=== PATIENT | female | born 1960 | race Caucasian/White ===

== ENCOUNTER 2018-06-23 21:55 | Observation (INO) ==
[2018-06-24] MEDS ORDERED: HYDROmorphone 2 MG/1 ML VIAL IV STA (01:56)
[2018-06-24] MEDS ORDERED: SODIUM CHLORIDE 0.9% 1,000 ML IV STA (01:56)
[2018-06-24] MEDS ORDERED: ONDANSETRON 4 MG/2 ML VIAL IV STA (01:56)
[2018-06-24] MEDS ORDERED: ONDANSETRON 4 MG/2 ML VIAL IV PRN (01:57)
[2018-06-24] MEDS ORDERED: DEXTROSE 5% LACTATED RINGERS 1,000 ML IV SCH (02:00)
[2018-06-24] MEDS: KETOROLAC 30 MG/1 ML VIAL IV PRN ×3 (03:46→22:53)
[2018-06-24] MEDS: SODIUM CHLORIDE 0.9% 1,000 ML IV SCH ×4 (03:58→22:52)
[2018-06-24] MEDS: ONDANSETRON 4 MG/2 ML VIAL IV PRN ×3 (05:50→22:52)
[2018-06-24 06:16] LABS: Basophils % 0.5 % (0.0-0.8); Eosinophils % 0.3 % (0.00-10.9); Hematocrit 37.9 VOL% (35.7-47.0); Hemoglobin 13.2 GM/DL (12.0-16.0); Immature Granulocytes % 0.3 %; Immature Granulocytes Absolute 0.02 #; Lymphocytes # 1.6 10*3/uL (1.4-4.0); Lymphocytes % 20.7 % (21.3-54.2); Mean Corpuscular HGB Conc 34.8 GM/DL (32-36); Mean Corpuscular Hemoglobin 29 PG (27-34); Mean Corpuscular Volume 83.7 FL (87-102); Mean Platelet Volume 11.1 FL (9.6-12.0); Monocytes # 0.7 10*3/uL (0.11-0.8); Monocytes % 9.2 % (1.7-12.7); Neutrophils # 5.3 10*3/uL (1.4-7.4); Platelet Count 186 T/CUMM (130-400); Red Blood Count 4.53 MC/CUMM (3.8-5.5); White Blood Count 7.7 T/CUMM (4-12)
[2018-06-24 06:34] LABS: Bilirubin,Total 0.7 MG/DL (0.2-1.0); Calcium 8.5 MG/DL (8.5-10.1); Osmolality,Calculated 277.4 MOS/KG (273-304); Potassium 3.4 MMOL/L (3.5-5.1); Total Protein 6.1 G/DL (6.4-8.3)
[2018-06-24] MEDS ORDERED: cefTRIAXone 1,000 MG in SYRINGE 1 EACH IV ONE (06:54)
[2018-06-24] MEDS ORDERED: PROPOFOL 200 MG/20 ML VIAL IV ONE (10:00)
[2018-06-24] MEDS ORDERED: SEVOFLURANE 1 UNIT/15 MINUTE INH ONE (10:00)
[2018-06-24] MEDS ORDERED: fentaNYL 100 MCG/2 ML VIAL ONE (10:00)
[2018-06-24] MEDS ORDERED: MIDAZOLAM 2 MG/2 ML VIAL ONE (10:00)
[2018-06-24] MEDS ORDERED: SUCCINYLCHOLINE 200 MG/10 ML VIAL ONE (10:00)
[2018-06-24] MEDS ORDERED: ONDANSETRON 4 MG/2 ML VIAL ONE (10:00)
[2018-06-24] MEDS: PANTOPRAZOLE 40 MG TABLET PO SCH (13:09)
[2018-06-25 00:05] LABS: Apearance,Urine CLEAR (Clear); Bilirubin,Urine Negative (Negative); Blood, Urine Moderate mg/dL (Negative); Glucose,Urine (UA) Negative (Negative); Ketones,Urine 5 mg/dL (Negative); Nitrite,Urine Negative (Negative); Protein,Urine Negative; RBC,Urine 27 /HPF (0-4); Squamous Epithelial Cell,Urine Occasional /HPF (0-10); Urine Color Straw (Yellow); Urine Specific Gravity 1.006 (1.001-1.035); Urine Urobilinogen < 2.0 EU/DL (0.2-1.0); WBC,Urine 4 /HPF (0-6)
[2018-06-25] MEDS: ONDANSETRON 4 MG/2 ML VIAL IV PRN ×2 (03:22→09:13)
[2018-06-25] MEDS: KETOROLAC 30 MG/1 ML VIAL IV PRN ×2 (09:13→11:43)
[2018-06-25] MEDS: SODIUM CHLORIDE 0.9% 1,000 ML IV SCH ×2 (09:14→13:07)
[2018-06-25] MEDS: PANTOPRAZOLE 40 MG TABLET PO SCH (11:30)
[2018-06-25 13:40] VITALS: BP 154/91
[2018-06-25] MEDS ORDERED: POTASSIUM CHLORIDE 20 MEQ TABLET PO ONE (14:57)
== END 2018-06-25 16:04 | disposition home or self-care (01) ==
LOC: N.EDINP 21:55 → N.ED 21:55 → N.5E 06-24 02:40
PROVIDERS: ADMIT Surgery; ATTEND Surgery

== ENCOUNTER 2020-09-26 10:34 | Observation (INO) ==
[2020-09-26 10:51] LABS: Basophils # 0.1 10*3/uL (0.0-0.2); Basophils % 0.9 % (0.0-0.8); Eosinophils # 0.1 10*3/uL (0.0-0.87); Eosinophils % 1.1 % (0.00-10.9); Hematocrit 38.8 VOL% (35.7-47.0); Hemoglobin 13.2 GM/DL (12.0-16.0); Immature Granulocytes % 0.3 %; Immature Granulocytes Absolute 0.02 #; Lymphocytes # 1.7 10*3/uL (1.4-4.0); Lymphocytes % 24.5 % (21.3-54.2); Mean Corpuscular Volume 88.2 FL (87-102); Mean Platelet Volume 10.9 FL (9.6-12.0); Monocytes % 4.6 % (1.7-12.7); Neutrophils % 68.6 % (38.7-73.9); Platelet Count 186 T/CUMM (130-400); Red Cell Distribution Width 12.4 % (9.3-17.3)
[2020-09-26 11:02] LABS: PT Patient Result 10.5 SECS (9.8-11.9); Partial Thromboplastin Time 24.5 SECS (23.9-33.8)
[2020-09-26 11:21] LABS: Alanine Aminotransferase < 9 U/L (13-56); Albumin 3.7 G/DL (3.4-5.0); Alkaline Phosphatase 89 U/L (45-117); Aspartate Amino Transferase 15 U/L (0-37); Blood Urea Nitrogen 6 MG/DL (7-18); Calcium 8.9 MG/DL (8.5-10.1); Carbon Dioxide 27 MMOL/L (21-32); Estimated Glom Filtration Rate 100 ML/MIN; Glucose 168 MG/DL (74-106); Osmolality,Calculated 284.1 MOS/KG (273-304); Potassium 3.2 MMOL/L (3.5-5.1); Sodium 142 MMOL/L (136-145); Total Protein 6.6 G/DL (6.4-8.3)
[2020-09-26] MEDS ORDERED: ENOXAPARIN 100 MG/ML SYRINGE SUBCUT STA (11:32)
[2020-09-26] MEDS ORDERED: ASPIRIN CHEW 81 MG TABLET PO STA (11:32)
[2020-09-26] MEDS ORDERED: METOPROLOL TARTRATE 5 MG/5 ML VIAL IV STA (11:32)
[2020-09-26] MEDS ORDERED: POTASSIUM CHLORIDE 20 MEQ TABLET PO STA (12:12)
[2020-09-26] MEDS ORDERED: NITROGLYCERIN 2% OINT 1 INCH/GM PACK TOP ONE (12:25)
[2020-09-26] MEDS ORDERED: MAGNESIUM SULF RIDER 2 GM in PREMIX 1 EACH IV PRN (12:30)
[2020-09-26] MEDS ORDERED: ALUM/MAG/SIMETH/LIDO VISC 1:1 30 ML BOTTLE PO PRN (12:30)
[2020-09-26] MEDS ORDERED: hydrALAZINE 20 MG/1 ML VIAL IV PRN (12:30)
[2020-09-26] MEDS ORDERED: GLUCAGON 1 MG VIAL IM PRN (12:30)
[2020-09-26] MEDS ORDERED: HEPARIN DRIP 25,000 UNITS/500 ML PREMIX IV SCH (12:30)
[2020-09-26] MEDS ORDERED: POTASSIUM CHLORIDE 20 MEQ TABLET PO PRN ×2 (12:30)
[2020-09-26] MEDS ORDERED: DEXTROSE 50% 25 GM/50 ML VIAL IV PRN (12:30)
[2020-09-26] MEDS: atenoloL 25 MG TABLET PO SCH (17:02)
[2020-09-26] MEDS: LOSARTAN 25 MG TABLET PO SCH ×2 (17:02→20:20)
[2020-09-26 18:51] LABS: Troponin I < 0.015 NG/ML (0.00-0.045)
[2020-09-26] MEDS: oxyCODONE/ACETAMINOPHEN 5-325 MG TABLET PO SCH (20:19)
[2020-09-26] MEDS: GABAPENTIN 600 MG TABLET PO SCH (20:19)
[2020-09-26] MEDS: ATORVASTATIN 40 MG TABLET PO SCH (20:20)
[2020-09-26] MEDS ORDERED: ATORVASTATIN 20 MG TABLET PO SCH (21:00)
[2020-09-27] MEDS: ACETAMINOPHEN 325 MG TABLET PO PRN ×2 (00:08→13:35)
[2020-09-27] MEDS: oxyCODONE/ACETAMINOPHEN 5-325 MG TABLET PO SCH ×3 (02:14→20:43)
[2020-09-27 04:23] LABS: Basophils # 0.1 10*3/uL (0.0-0.2); Basophils % 0.6 % (0.0-0.8); Eosinophils # 0.2 10*3/uL (0.0-0.87); Eosinophils % 1.9 % (0.00-10.9); Hematocrit 37.4 VOL% (35.7-47.0); Hemoglobin 12.8 GM/DL (12.0-16.0); Immature Granulocytes % 0.1 %; Immature Granulocytes Absolute 0.01 #; Lymphocytes # 3.8 10*3/uL (1.4-4.0); Lymphocytes % 48.1 % (21.3-54.2); Mean Corpuscular HGB Conc 34.2 GM/DL (32-36); Mean Platelet Volume 10.9 FL (9.6-12.0); Neutrophils % 42.3 % (38.7-73.9); Platelet Count 162 T/CUMM (130-400); Red Cell Distribution Width 12.6 % (9.3-17.3); White Blood Count 7.8 T/CUMM (4-12)
[2020-09-27 04:51] LABS: Calcium 8.6 MG/DL (8.5-10.1); Osmolality,Calculated 279.3 MOS/KG (273-304); Potassium 3.3 MMOL/L (3.5-5.1); Risk Ratio 3.11; Thyroid Stimulating Hormone 3.19 uIU/ml (0.358-3.74); VLDL CHOLESTEROL 25.6 MG/DL
[2020-09-27] MEDS: ONDANSETRON 4 MG/2 ML VIAL IV PRN ×2 (06:24→13:35)
[2020-09-27] MEDS ORDERED: POTASSIUM CHLORIDE 20 MEQ TABLET PO ONE (07:57)
[2020-09-27 08:03] LABS: Troponin I < 0.015 NG/ML (0.00-0.045)
[2020-09-27] MEDS: ASPIRIN EC 81 MG TABLET PO SCH (08:20)
[2020-09-27] MEDS: atenoloL 25 MG TABLET PO SCH (08:20)
[2020-09-27] MEDS: GABAPENTIN 600 MG TABLET PO SCH ×3 (08:21→20:42)
[2020-09-27] MEDS: PANTOPRAZOLE 40 MG TABLET PO SCH (08:21)
[2020-09-27] MEDS: LOSARTAN 25 MG TABLET PO SCH (08:22)
[2020-09-27] MEDS ORDERED: KETOROLAC 15 MG/1 ML VIAL IV ONE (09:44)
[2020-09-27] MEDS ORDERED: ALUM/MAG/SIMETH/LIDO VISC 1:1 30 ML BOTTLE PO ONE (09:45)
[2020-09-27] MEDS ORDERED: LOSARTAN 25 MG TABLET PO ONE (12:24)
[2020-09-27] MEDS ORDERED: DEXTROSE 50% 25 GM/50 ML VIAL IV PRN (13:08)
[2020-09-27] MEDS ORDERED: ENOXAPARIN 40 MG/0.4 ML SYRINGE SUBCUT SCH (13:30)
[2020-09-27] MEDS: MORPHINE 4 MG/1 ML VIAL IV PRN ×2 (17:30→22:22)
[2020-09-27] MEDS: ATORVASTATIN 40 MG TABLET PO SCH (20:42)
[2020-09-27] MEDS: LOSARTAN 50 MG TABLET PO SCH (20:44)
[2020-09-28] MEDS: ONDANSETRON 4 MG/2 ML VIAL IV PRN ×2 (00:59→08:13)
[2020-09-28 01:28] VITALS: BP 153/79
[2020-09-28] MEDS: MORPHINE 4 MG/1 ML VIAL IV PRN ×2 (04:36→10:40)
[2020-09-28 06:29] LABS: Basophils % 0.9 % (0.0-0.8); Eosinophils % 0.6 % (0.00-10.9); Hematocrit 42.2 VOL% (35.7-47.0); Hemoglobin 14.2 GM/DL (12.0-16.0); Immature Granulocytes % 0.2 %; Immature Granulocytes Absolute 0.01 #; Lymphocytes % 21.4 % (21.3-54.2); Mean Corpuscular HGB Conc 33.6 GM/DL (32-36); Monocytes % 6.4 % (1.7-12.7); Neutrophils % 70.5 % (38.7-73.9); Platelet Count 167 T/CUMM (130-400); Red Blood Count 4.74 MC/CUMM (3.8-5.5); Red Cell Distribution Width 12.4 % (9.3-17.3); White Blood Count 4.7 T/CUMM (4-12)
[2020-09-28 06:41] LABS: Calcium 8.9 MG/DL (8.5-10.1); Osmolality,Calculated 278.4 MOS/KG (273-304); Potassium 3.9 MMOL/L (3.5-5.1)
[2020-09-28] MEDS: PANTOPRAZOLE 40 MG TABLET PO SCH (08:13)
[2020-09-28] MEDS: LOSARTAN 50 MG TABLET PO SCH (08:13)
[2020-09-28] MEDS: ASPIRIN EC 81 MG TABLET PO SCH (08:13)
[2020-09-28] MEDS: GABAPENTIN 600 MG TABLET PO SCH (08:13)
[2020-09-28] MEDS: oxyCODONE/ACETAMINOPHEN 5-325 MG TABLET PO SCH (08:13)
[2020-09-28] MEDS ORDERED: PROMETHAZINE 25 MG/1 ML VIAL IM PRN (10:33)
== END 2020-09-28 16:42 | disposition home or self-care (01) ==
LOC: N.ED 10:34 → N.EDINP 10:34 → N.TELEN 18:10
PROVIDERS: ADMIT Internal Medicine; ATTEND Internal Medicine